=== PATIENT | male | born 1955 | race Hispanic/Latino ===

== ENCOUNTER → 2022-05-27 | Day surgery (SDC) | payer BC, MEDICARE ==
[~2022-05-27] MED LIST: ASPIR 8181 MG PO; ATORVASTATIN CA10 MG PO; BACTRIM DS TAB1 EACH PO; CARVEDILOL12.5 MG PO; CILOSTAZOL100 MG PO; CLONIDINE HCL0.1 MG PO; CYCLOSPORINE25 MG PO; DIALYVITE 800800 MCG PO; FLOMAX0.4 MG PO; LANTUS100 UNITS/ SC; MAGNESIUM OXID400 MG PO; NIFEDIPINE20 MG PO; NOVOLOG MI100 UNITS/ SC; PRAZOSIN HCL5 MG PO; PROBIOTIC & AC1 EACH PO; RAPAMUNE1 MG PO; SODIUM CHLORIDE 0.9% 500ML 500 ML ONE; TORSEMIDE10 MG PO; TORSEMIDE20 MG PO; VASOTEC5 MG PO; [UNRECOGNIZED DRUG - OTHER] PO
[2022-05-27 13:21] LABS: BASOPHILS # (AUTO) 0.1 (0.0-0.1); BASOPHILS % 0.7 % (0.0-1.0); EOSINOPHILS # (AUTO) 0.2 (0.0-0.4); EOSINOPHILS % 2.2 % (0.0-6.0); HEMATOCRIT 46.7 % (38.2-49.6); HEMOGLOBIN 14.9 g/dL (14.0-18.0); LYMPHOCYTES # (AUTO) 1.3 (1.0-3.2); LYMPHOCYTES % 18.3 % (18.0-39.1); MEAN CORPUSCULAR HEMOGLOBIN 28.8 pg (28-32); MEAN CORPUSCULAR HGB CONC 31.9 g/dL (31-35); MEAN CORPUSCULAR VOLUME 90.3 fL (81-99); MONOCYTES # (AUTO) 0.5 (0.2-0.8); MONOCYTES % 6.6 % (4.4-11.3); NEUTROPHILS # (AUTO) 5.1 (2.1-6.9); NEUTROPHILS % 70.8 % (38.7-80.0); PLATELET COUNT 108 x10e3/uL (140-360); RED BLOOD COUNT 5.17 x10e6/uL (4.3-5.7); RED CELL DISTRIBUTION WIDTH 14.7 % (11.7-14.4)
[2022-05-27 13:35] LABS: INR 1.12; PROTHROMBIN TIME 15.4 seconds (11.9-14.5)
[2022-05-27 13:38] LABS: ANION GAP 19.2 mmol/L (8-16); CALCIUM 8.4 mg/dL (8.4-10.2); CREATININE, SERUM 2.6 mg/dL (0.72-1.25); POTASSIUM 4.2 mmol/L (3.5-5.1)
[2022-05-27 15:35] VITALS: BP 154/60
== END | disposition home or self-care (01) ==
LOC: OR 12:37
PROVIDERS: ATTEND Internal Medicine Gastroenterology
DX: Z09 Encounter for follow-up examination after completed treatment for conditions other than malignant neoplasm (principal); Z86.010 Personal history of colon polyps; K64.8 Other hemorrhoids; E10.9 Type 1 diabetes mellitus without complications; I25.10 Atherosclerotic heart disease of native coronary artery without angina pectoris; I10 Essential (primary) hypertension; E78.5 Hyperlipidemia, unspecified; J45.909 Unspecified asthma, uncomplicated; Z79.4 Long term (current) use of insulin; Z79.02 Long term (current) use of antithrombotics/antiplatelets; Z79.82 Long term (current) use of aspirin; Z79.899 Other long term (current) drug therapy; Z94.0 Kidney transplant status; Z99.2 Dependence on renal dialysis; Z95.5 Presence of coronary angioplasty implant and graft
CPT/HCPCS: 36415; 45378; 80048; 82948; 85025; 85610; 85730; 93005; J7040